=== PATIENT | female | born 1990 ===

== ENCOUNTER 2021-02-21 11:33 | Emergency (ER) | payer OTHER, SELFPAY ==
[2021-02-21 12:07] VITALS: BP 123/58; PULSE 100; RESP 18; TEMP 36.8; O2SAT 98; BMI 27.8
--- NOTE | 2021-02-21 12:58 | ED.GENADULT ---
HPI - General Adult General Chief complaint: Ear Problems Stated complaint: ear pain, sore throat Time Seen by Provider: 02/21/21 12:58 Source: patient Mode of arrival: ambulatory Limitations: no limitations History of Present Illness HPI narrative: patient with 3 days of cough, ear pain and throat pain. patient states fever at home, tactile. Onset (ago): day(s) Severity: mild Associated symptoms: cough, fever/chills and other (sore throat and ear pain) Related Data Previous Rx's Medication Instructions Recorded amoxicillin 875 mg tablet 875 mg PO BID #20 tab 02/21/21 Allergies Allergy/AdvReac Type Severity Reaction Status Date / Time No Known Allergies Allergy Verified 02/21/21 12:06 Review of Systems Constitutional: Constitutional: Reports no additional constitutional complaints Eyes: Eyes: Reports no additional eye complaints ENT: Denies dizziness Cardiovascular: Cardiovascular: Reports no additional cardiovascular complaints Respiratory: Respiratory: Reports as per HPI Gastrointestinal: Gastrointestinal: Reports no additional gastrointestinal complaints Genitourinary: Genitourinary: Reports no additional female genitourinary complaints Musculoskeletal: Musculoskeletal: Reports no additional musculoskeletal complaints Integumentary/Breasts: Skin/Breast: Denies rash Neurologic: Reports system reviewed and no additional complaints, except as documented, Denies dizziness and Denies Sensory deficit (Neuro) Psychiatric: Psychiatric: Denies anxiety [facility] Past Medical History Medical History No pertinent past medical history Social History Social History Advance Directives: No Advance Directives Information Provided: No Patient : No Physical Exam Vital Signs: Vital Signs: Last Vital Signs Temp 98.2 F 02/21/21 12:07 Pulse 100 02/21/21 12:07 Resp 18 02/21/21 12:07 BP 123/58 L 02/21/21 12:07 Pulse Ox 98 02/21/21 12:07 Body Mass Index 27.8 Const: General: healthy appearing Nutritional Appearance: average body habitus Orientation/consciousness: oriented to person and patient oriented x3 Limitations: no limitations HENMT: Other: TMS normal, pharynx with erythema no exudates Head: Yes normal to inspection Ears: external ears normal General nose exam: Normal external nose present Throat: Yes posterior oropharynx normal Eyes: General: appearance normal, both eyes and all related structures Neck: Other: supple Neck: Yes normal visual inspection Chest: Chest palpation & inspection: normal inspection of the chest Resp: Auscultation: clear to auscultation bilaterally Cardio: Jugular venous distension: no JVD Rate: regular rate Rhythm: regular rhythm Heart sounds: S1 normal heart sound present and S2 normal heart sound present GI: Inspection: Yes normal to inspection Palpation (GI): Soft to palpation, nontender and No hepatosplenomegaly present Auscultation: normal bowel sounds : General: Yes no CVA tenderness Back/Spine/Pelvis: Back: no CVA tenderness Skin: General skin exam: no rashes or lesions noted Neuro: General: oriented to person and patient oriented x3 Cranial nerves: Yes CN's II-XII intact bilaterally Motor exam (neuro): 5/5 motor strength present throughout Sensory Exam: No Sensory deficit (Neuro) Extrem: General: Yes normal to inspection Psych: Appearance: grossly normal Course Reevaluation(s) Reevaluation #1: patient with strep throat, will place on amoxicillin and dc home. patient COVID was negative Time: 14:49 Medical Decision Making Lab Data Labs: Lab Results 02/21/21 02/21/21 Range/Units 13:06 13:06 Influenza Type A (PCR) NEGATIVE (Negative) Influenza Type B (PCR) NEGATIVE (Negative) RSV RNA Qual (PCR) NEGATIVE (Negative) SARS-CoV-2 RNA (RT-PCR) NEGATIVE (Negative) S. pyogenes GrpA KOLBY Positive A (Negative) Discharge Plan Discharge Clinical Impression: Strep pharyngitis Patient Disposition: Home, Self-Care Instructions: Strep Throat (ED) Prescriptions: New amoxicillin 875 mg tablet 875 mg PO BID Qty: 20 RF: 0 Referrals: Physician,None [Primary Care Provider] - 1 week
[2021-02-21 13:20] LABS: IDNOW Serial# 9DD0AD1C; Strep A Nucleic Acid Positive (Negative)
[2021-02-21 14:01] LABS: Influenza A PCR NEGATIVE (Negative); Influenza B PCR NEGATIVE (Negative); Resp Syncy Virus RNA Qual PCR NEGATIVE (Negative); SARS COV2 PCR INHOUSE NEGATIVE (Negative)
[2021-02-21] MEDS: Amoxicillin 500 MG CAPSULE PO (14:02)
== END 2021-02-21 14:58 | disposition home or self-care (01) ==
PROVIDERS: Emergency Provider Emergency Medicine
DX: J02.0 Streptococcal pharyngitis (principal); Z20.822 Contact with and (suspected) exposure to COVID-19
CPT/HCPCS: 0241U; 36415; 87651; 99282; 99283

== ENCOUNTER 2021-03-11 10:32 | Outpatient (REF) | payer OTHER, SELFPAY ==
[2021-03-11 16:07] LABS: CT PCR NOT DETECTED (Not Detect.); NG PCR NOT DETECTED (Not Detect.)
[2021-03-12 09:39] LABS: BV Int Neg Control Negative (Negative); BV Int Pos Control Positive (Positive)
== END 2021-03-11 10:33 | disposition home or self-care (01) ==
LOC: HO.LAB 10:32
PROVIDERS: Visit Provider Advanced Practice Midwife
DX: Z30.09 Encounter for other general counseling and advice on contraception (principal); Z20.2 Contact with and (suspected) exposure to infections with a predominantly sexual mode of transmission
CPT/HCPCS: 87480; 87491; 87510; 87591; 87660; 99202

== ENCOUNTER 2021-03-12 12:58 | Outpatient (REF) | payer OTHER, SELFPAY | END 2021-03-12 12:59 | disposition home or self-care (01) | LOC: HO.LAB 12:58 | PROVIDERS: Visit Provider Internal Medicine | DX: Z20.822 Contact with and (suspected) exposure to COVID-19 (principal) | CPT/HCPCS: C9803; U0003; U0005 ==

== ENCOUNTER 2021-08-21 15:06 | Outpatient (REF) | payer OTHER, SELFPAY ==
[2021-08-21 15:21] LABS: MANUAL DIFF FLAG NO
[2021-08-21 15:25] LABS: Basophils Absolute Auto 0.1 X10*3/uL (0.0-0.2); Basophils Percent Auto 0.4 % (0-2); Eosinophils Absolute Auto 0.1 X10*3/uL (0.0-0.4); Eosinophils Percent Auto 0.8 % (0-4); Hematocrit 36.1 % (37.0-47.0); Hemoglobin 11.8 g/dl (12.0-16.0); Imm Gran Abs Auto 0.05 X10*3/uL (0.00-0.03); Imm Gran Pct Auto 0.3 % (0.0-0.4); Lymphocytes Absolute Auto 3.6 X10*3/uL (1.2-4.9); Lymphocytes Percent Auto 24.9 % (20-40); Mean Corpuscular HGB Conc 32.7 g/dl (31.0-35.0); Mean Corpuscular Hemoglobin 28.5 pg (27.0-33.0); Mean Corpuscular Volume 87.2 fL (80.0-98.0); Mean Platelet Volume 9.1 fL (9.4-12.3); Monocytes Absolute Auto 0.7 X10*3/uL (0.1-1.2); Monocytes Percent Auto 4.8 % (2-11); Neutrophils Absolute Auto 9.9 x10*3/uL (2.0-8.3); Neutrophils Percent Auto 68.8 % (45-73); Platelet Count 306 X10*3/uL (160-400); Red Blood Count 4.14 X10*6/uL (4.20-5.50); Red Cell Distribution Width 13.6 % (11.0-16.0); White Blood Count 14.4 X10*3/uL (4.8-10.8)
[2021-08-21 15:49] LABS: Appearance Urine CLEAR; Color Urine YELLOW; Glucose Urine UA NEG (NEG); Leukocyte Esterase Urine TRACE (NEG); Nitrite Urine NEG (NEG); PH 5.5 (5.0-8.0); Specific Gravity - Urine 1.025 (1.005-1.025); UACC Culture Trigger NO; Urine Blood 1+ (NEG); Urine Ketones NEG (NEG); Urine Protein NEG (NEG-TRACE)
[2021-08-21 15:53] LABS: Alanine Aminotransferase 11 U/L (0-31); Albumin Level 3.9 g/dL (3.5-5.0); Alkaline Phosphatase 63 U/L (39-117); Anion Gap 10 (12-20); Aspartate Amino Transferase 12 U/L (5-31); Bilirubin Total 0.3 mg/dL (0.0-1.0); Blood Urea Nitrogen 13 mg/dL (9-16); Calcium 9.3 mg/dL (8.4-10.2); Carbon Dioxide 25 mmol/L (22-29); Chloride 106 mmol/L (96-108); Cholesterol 142 mg/dL; Estimated Glomerular Filt Rate > 60; Glucose Random 83 mg/dL (60-115); Potassium 4.2 mmol/L (3.3-5.1); Sodium 137 mmol/L (135-145); Total Protein 7.3 g/dL (6.5-8.0)
[2021-08-21 16:11] LABS: Squamous Epithelial Cell Urine 2+ /LPF
[2021-08-21 16:12] LABS: Bacteria Urine TRACE /LPF; Mucus Urine TRACE /LPF
[2021-08-21 16:13] LABS: TSH reflex Free T4 2.05 uIU/mL (0.32-4.0); Vitamin D 25-OH Total 18.8 ng/mL (>30)
== END 2021-08-21 15:07 | disposition home or self-care (01) ==
LOC: HO.LAB 15:06
PROVIDERS: PCP Internal Medicine; Visit Provider Internal Medicine
DX: Z00.00 Encounter for general adult medical examination without abnormal findings (principal); E55.9 Vitamin D deficiency, unspecified
CPT/HCPCS: 36415; 80053; 81001; 82306; 82465; 84443; 85025

== ENCOUNTER 2022-04-03 09:28 | Outpatient (REF) | payer OTHER, SELFPAY ==
[2022-04-03 10:29] LABS: COVID-19 Test Positive (Negative); IDNOW Serial# 9DB6401D
== END 2022-04-03 09:29 | disposition home or self-care (01) ==
LOC: HO.LAB 09:28
PROVIDERS: Visit Provider Internal Medicine
DX: Z20.822 Contact with and (suspected) exposure to COVID-19 (principal)
CPT/HCPCS: 87635; C9803

== ENCOUNTER 2022-07-15 20:27 | Emergency (ER) | payer OTHER, SELFPAY ==
[2022-07-15 20:49] VITALS: BP 128/86; PULSE 87; RESP 16; TEMP 36.6; O2SAT 99; BMI 28.1
--- NOTE | 2022-07-15 22:01 | ED_ITS ---
HPI - General Adult General Chief complaint: Eye Problems Stated complaint: eye injury, swollen shut Time Seen by Provider: 07/15/22 21:28 Source: patient, RN notes reviewed and old records reviewed Mode of arrival: ambulatory Limitations: no limitations History of Present Illness HPI narrative: 31-year-old female presents for evaluation of left eye redness. Patient woke up with swelling around her left eye and redness to the eye just today. She also complains of thick discharge from the eye Patient reports that she wears contacts daily She follows with ophthalmology in [place] Denies getting anything in her eye. 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 Related Data Home Medications Medication Instructions Recorded Confirmed norethindrone 1.5 mg-ethinyl 1 tab PO DAILY 08/20/21 08/20/21 estradiol 30 mcg(21)/iron 75 mg(7) tablet (June FE 1.09/09 (28)) Previous Rx's Medication Instructions Recorded citalopram 10 mg tablet 10 mg PO DAILY 30 days #30 tabs 11/15/21 ciprofloxacin HCl 0.3 % eye drops See Rx Instructions ophthalmic 07/15/22 (eye) .COMPLEX 5 days #5 mL Allergies Allergy/AdvReac Type Severity Reaction Status Date / Time No Known Allergies Allergy Verified 07/15/22 20:49 Review of Systems Constitutional: Constitutional: Reports as per HPI, Denies chills, Denies fever(s) and Denies headache(s) Eyes: Eyes: Reports eye discharge, Reports eye pain and Reports photophobia ENT: Denies headache(s) Neurologic: Denies headache(s) and Denies focal weakness [facility] Past Medical History Medical History (Updated 07/15/22 @ 22:07 by Ran Feng) Anxiety Depression DVT (deep venous thrombosis) Overweight (BMI 25.0-29.9) Surgical History No pertinent past surgical history Family History Family History Mother Ovarian cancer Father Blood clots in brain, Onset Age: 45 Social History Social History Housing: Apartment Alcohol intake: never Patient Tobacco Use Status: Never used Tobacco e-Cigarette/Vaping Use: Never Used Second Hand Smoke Exposure: No Advance Directives: No Advance Directives Information Provided: No service: No Current occupational status: student Sexual orientation: Straight/Heterosexual Gender identity: Female Cognitive needs: No Hearing needs: No Vision needs: No Physical Exam ED Vital Signs: Vital Signs - 24 hr 07/15/22 20:49 Temperature 98 F Pulse Rate 87 Respiratory Rate 16 Blood Pressure 128/86 Pulse Oximetry 99 Oxygen Delivery Method Room Air BMI result Body Mass Index 28.1 Const General: healthy appearing, comfortable, no acute distress, alert and awake Nutritional Appearance: well nourished Orientation/consciousness: patient oriented x3 HENMT Head: Yes normocephalic and Yes atraumatic Throat: Yes posterior oropharynx normal Eyes Periorbital: periorbital findings normal Eyelids: Yes eyelids normal Conjunctivae: conjunctival abnormal left conjunctival injection and discharge Sclerae: scleral abnormal left scleral injection; without foreign bodies and without hemorrhages Corneas: corneas abnormal Pupils: Equal, round and reactive pupils present, Pupils normal by confrontation and Pupil accommodation reflex normal EOM: EOMs intact bilaterally Direct Ophthalmoscopy: photophobia Neck Neck: Yes full ROM Resp Effort & Inspection: normal respiratory effort, able to speak in complete sentences, no audible wheezes and not labored Auscultation: clear to auscultation bilaterally Cardio Rate: regular rate Rhythm: regular rhythm GI Inspection: No distended Palpation (GI): Soft to palpation, not firm, nontender, no guarding and not rigid Auscultation: normoactive bowel sounds Skin General skin exam: no rashes or lesions noted and elasticity normal Neuro General: patient oriented x3 Cranial nerves: Yes CN's II-XII intact bilaterally, Yes Equal, round and reactive pupils present and Yes Bilaterally intact EOM present Cognition (Neuro): normal cognition Extrem Other: Moving all extremities well without any obvious deformities Medical Decision Making Medical Decision Making MDM Narrative: Patient clinically has acute conjunctivitis. Given that she is a contact lens wear, will treat with Cipro drops to make sure we cover for Pseudomonas. The patient will follow up with Ophthalmology Differential Diagnosis Bacterial conjunctivitis Viral conjunctivitis Allergic conjunctivitis Foreign body Iritis Discharge Plan Discharge Clinical Impression: Bacterial conjunctivitis Patient Disposition: Home, Self-Care Instructions: Conjunctivitis (ED) Prescriptions: New ciprofloxacin HCl 0.3 % drops See Rx Instructions .ROUTE .COMPLEX 5 Days Qty: 5 0RF Rx Instructions: put 1-2 drps in affected eye(s) every 2hr up to 8 times/day x2days; then 4 times/day x5days No Action citalopram 10 mg tablet 10 mg PO DAILY 30 Days Qty: 30 3RF norethindrone-e.estradiol-iron [Junel FE 1.5/30 (28)] 1.5 mg-30 mcg (21)/75 mg (7) tablet 1 tab PO DAILY
== END 2022-07-15 22:18 | disposition home or self-care (01) ==
PROVIDERS: Emergency Provider Student in an Organized Health Care Education/Training Program
DX: H10.89 Other conjunctivitis (principal)
CPT/HCPCS: 99282; 99283

== ENCOUNTER 2022-11-11 12:39 | Emergency (ER) | payer OTHER, SELFPAY ==
[2022-11-11 12:42] VITALS: BP 137/92; PULSE 99; RESP 16; TEMP 35.9; O2SAT 99; BMI 29.6
--- NOTE | 2022-11-11 12:42 | ED_ITS ---
HPI - Female Genitourinary General Chief complaint: Urogenital-Female Stated complaint: Blood in urine/Lower abd pain Time Seen by Provider: 11/11/22 12:47 Source: patient Mode of arrival: ambulatory Limitations: no limitations History of Present Illness HPI Narrative: 32 yo female with history of anxiety/depression who presents to the ER for evaluation of blood in her urine, dysuria, urgency, and frequency for the last 2-3 days. Also has suprapubic pains and nausea. No back pain, diarrhea, or fevers. She has normal clear vaginal discharge. No concern for STI. Sexually active with her male partner only. MD elicited complaint: dysuria and UTI Onset (ago): day(s) (3) Location of symptoms: suprapubic and urethra Severity: severe Female Urogenital Radiation: Suprapubic Severity scale (1-10): 10 Quality of pain: sharp and burning Consistency: constant Vaginal discharge: other (clear) Urinary symptoms: Dysuria, Urgency and Frequency Exacerbating factors: urination Relieving factors: none Associated symptoms: denies other symptoms Treatment prior to arrival: none Sexual activity: Yes Patient : No Date of Last Menstrual Period: 11/04/22 Related Data Home Medications Medication Instructions Recorded Confirmed norethindrone 1.5 mg-ethinyl 1 tab PO DAILY 08/20/21 08/20/21 estradiol 30 mcg(21)/iron 75 mg(7) tablet (Junel FE 1.09/09 (28)) Previous Rx's Medication Instructions Recorded citalopram 10 mg tablet 10 mg PO DAILY 30 days #30 tabs 11/15/21 ciprofloxacin HCl 0.3 % eye drops See Rx Instructions ophthalmic 07/15/22 (eye) .COMPLEX 5 days #5 mL cefuroxime axetil 250 mg tablet 250 mg PO BID 7 days #14 tabs 11/11/22 phenazopyridine 100 mg tablet 100 mg PO TID PRN pain 6 doses #6 11/11/22 (Pyridium) tabs Allergies Allergy/AdvReac Type Severity Reaction Status Date / Time No Known Allergies Allergy Verified 07/15/22 20:49 Review of Systems Review of Systems: Yes all other systems are reviewed and are negative PMFSH Past Medical History Medical History (Updated 11/11/22 @ 13:41 by JOANNA Goodman) Anxiety Depression DVT (deep venous thrombosis) Overweight (BMI 25.0-29.9) Surgical History No pertinent past surgical history Date of Last Menstrual Period: 11/04/22 Family History Family History Mother Ovarian cancer Father Blood clots in brain, Onset Age: 45 Social History Social History Housing: Apartment Alcohol intake: never Patient Tobacco Use Status: Never used Tobacco e-Cigarette/Vaping Use: Never Used Second Hand Smoke Exposure: No Advance Directives: No Advance Directives Information Provided: No Patient : No service: No Current occupational status: student Sexual orientation: Straight/Heterosexual Gender identity: Female Cognitive needs: No Hearing needs: No Vision needs: No Physical Exam Vital Signs: Vital Signs: Last Vital Signs Temp 96.7 F L 11/11/22 12:42 Pulse 99 11/11/22 12:42 Resp 16 11/11/22 12:42 BP 137/92 H 11/11/22 12:42 Pulse Ox 99 11/11/22 12:42 O2 Del Method Room Air 11/11/22 12:42 BMI result Body Mass Index 29.6 Appearance: Alert. Oriented X3. No acute distress. HEENT: normal inspection Neck: Normal inspection. CVS: Normal heart rate and rhythm. Pulses normal. Respiratory: No respiratory distress. Breath sounds normal. Abdomen: Soft with mild suprapubic tenderness, no rebound or guarding. +BS x4. pelvic deferred Skin: Skin warm and dry. Normal skin color. Normal skin turgor. No rashes. Extremities: No lower extremity edema. No joint swelling. Neuro/psych: Oriented X 3. Grossly normal, nonfocal Medical Decision Making Medical Decision Making [facility] Narrative: 32 yo female presenting with UTI symptoms x2-3 days. low clinical suspicion for STI. UA + for infection. will treat with po abx and pyridium. not septic. no systemic signs of infection stable for d/c home Differential Diagnosis Differential Diagnoses: The differential diagnosis associated with the pres entation includes UTI, bacterial vaginosis, candidal infection, kidney stone, STI Lab Data [facility] Lab Attestation statement: I reviewed the patient's lab results. Labs: Lab Results 11/11/22 11/11/22 Range/Units 13:10 13:10 Urine Color Yellow Urine Appearance Clear Urine pH 7.0 (5.0-9.0) Ur Specific [place] 1.025 (1.005-1.025) Urine Protein Negative (Neg-Trace) mg/dL Urine Glucose (UA) Negative (Negative) mg/dL Urine Ketones Trace (Negative) mg/dL Urine Blood Negative (Negative) Urine Nitrite Negative (Negative) Ur Leukocyte Esterase Trace H (Negative) Urine RBC 3-5 H (0-2) /HPF Urine WBC 6-10 H (0-5) /HPF Ur Squamous Epith Cells 11-20 (0-2) /HPF Urine Bacteria None Seen (None Seen) Hyaline Casts 0-2 (0-2) /LPF Urine Test NEGATIVE (NEGATIVE) External Record Review External record reviewed: Outpatient record and Prior outpatient labs Tests considered The following testing was considered but not selected: considered lab workup Prescription Management I considered prescription management with: Antibiotic Critical Care Time Critical Care Time Critical Care Time: No Discharge Plan Discharge Clinical Impression: Urinary tract infection Patient Disposition: Home, Self-Care Instructions: Urinary Tract Infection in Women (ED) Additional Instructions: Take the prescribed antibiotics as directed, complete the entire course and do not miss any doses Drink plenty of water No sexual activity until all of your symptoms are completely resolved and you completed the antibiotics If you develop new or worsening symptoms call 911 or come back to the ER for further evaluation. Prescriptions: New cefuroxime axetil 250 mg tablet 250 mg PO BID 7 Days Qty: 14 0RF phenazopyridine [Pyridium] 100 mg tablet 100 mg PO TID PRN (Reason: pain) Qty: 6 0RF No Action citalopram 10 mg tablet 10 mg PO DAILY 30 Days Qty: 30 3RF ciprofloxacin HCl 0.3 % drops See Rx Instructions .ROUTE .COMPLEX 5 Days Qty: 5 0RF Rx Instructions: put 1-2 drps in affected eye(s) every 2hr up to 8 times/day x2days; then 4 times/day x5days norethindrone-e.estradiol-iron [Junel FE 1.5/30 (28)] 1.5 mg-30 mcg (21)/75 mg (7) tablet 1 tab PO DAILY Interventions: ED Discharge Assessment Last Done: 11/11/22 14:06 Discharge Date/Time: 11/11/22 14:07
[2022-11-11 13:21] LABS: Appearance Urine Clear; Color Urine Yellow; Glucose Urine UA Negative (Negative); Leukocyte Esterase Urine Trace (Negative); Nitrite Urine Negative (Negative); Specific Gravity - Urine 1.025 (1.005-1.025); UMIC TRIGGER UACC YES; Urine Blood Negative (Negative); Urine Ketones Trace mg/dL (Negative); Urine Protein Negative (Neg-Trace)
[2022-11-11 13:23] LABS: UPreg QC Valid YES; Urine Pregnancy NEGATIVE (NEGATIVE)
[2022-11-11 13:24] LABS: Bacteria Urine None Seen (None Seen); Hyaline Casts Urine 0-2 /LPF (0-2); UACC Culture Trigger YES
== END 2022-11-11 14:07 | disposition home or self-care (01) ==
PROVIDERS: Physician Assistant; Emergency Provider Emergency Medicine
DX: N39.0 Urinary tract infection, site not specified (principal); Z86.718 Personal history of other venous thrombosis and embolism
CPT/HCPCS: 81001; 81025; 87086; 99282; 99283